=== PATIENT | female | born 1945 | race Caucasian/White ===

== ENCOUNTER 2022-03-17 18:51 | Emergency (ER) | payer OTHER ==
[~2022-03-17] VITALS: Ht 162.6 cm; Wt 94.8 kg
[~2022-03-17 18:51] MED LIST: DETROL LA4 MG PO; DOLOGESIC 500-1 EACH PO; KEFLEX500 MG PO; LOSARTAN-HCTZ1 EAC1 PO; NORFLEX100MG PO; RANITIDINE HCL300 M1 PO; SYNTHROID125 MCG PO; TRAMADOL HCL50 MG PO; [UNRECOGNIZED DRUG - OTHER] PO
[2022-03-17] MEDS ORDERED: LEVSIN/SL0.125 MG SL (22:56)
== END 2022-03-17 23:38 | disposition home or self-care (01) ==
LOC: ER 18:51
DX: R10.11 Right upper quadrant pain (principal); E11.9 Type 2 diabetes mellitus without complications; J43.9 Emphysema, unspecified; I10 Essential (primary) hypertension; K80.50 Calculus of bile duct without cholangitis or cholecystitis without obstruction